=== PATIENT | female | born 1990 | race Caucasian/White ===

== ENCOUNTER 2021-09-18 13:07 | Emergency (ER) | payer OTHER, SELFPAY ==
[2021-09-18 13:18] VITALS: BP 152/94; PULSE 130; RESP 27; TEMP 36.7; O2SAT 99
--- NOTE | 2021-09-18 13:36 | ED.FEMALEGU ---
HPI - Female Genitourinary General Chief complaint: Vaginal Bleeding <Maryan Shafer PA-C - Last Filed: 09/18/21 19:18> Stated complaint: vag bld/abd pain; 10 wk preg <Maryan Shafer PA-C - Last Filed: 09/18/21 19:18> Time Seen by Provider: 09/18/21 13:21 <Maryan Shafer PA-C - Last Filed: 09/18/21 19:18> Source: patient <Maryan Shafer PA-C - Last Filed: 09/18/21 19:18> Mode of arrival: EMS <Maryan Shafer PA-C - Last Filed: 09/18/21 19:18> Limitations: no limitations <Maryan Shafer PA-C - Last Filed: 09/18/21 19:18> History of Present Illness HPI Narrative: This is a 30-year-old A1 female who presents to the ED via EMS from shelter with complaints of vaginal bleeding. Patient reports she has not had her period in 2 months and took a home test 1 month ago, which was positive. She then states she began having lower abdominal cramping last night, and began spotting a few hours ago today. The cramping has improved today. She notes the bleeding is light and she has not gone through a pad since the bleeding started. Patient denies any fevers, chills, nausea, vomiting, diarrhea, urinary symptoms, chest pain, shortness of breath. Patient denies any vaginal discharge or concern for STI. Patient has a history of opioid dependence and is on daily methadone therapy. She has not received her daily dose in the past 2 days. <Maryan Shafer PA-C - Last Filed: 09/18/21 19:18> Related Data Allergies/Adverse reactions: Allergies Allergy/AdvReac Type Severity Reaction Status Date / Time aripiprazole Allergy Mild TARDIVE Verified 05/22/16 19:50 DYSKINESIA <Maryan Shafer PA-C - Last Filed: 09/18/21 19:18> Review of Systems Review of Systems: CONSTITUTIONAL: Denies fever, chills, or sweats. CARDIOVASCULAR: Denies chest pain. RESPIRATORY: Denies dyspnea. GASTROINTESTINAL: Reports lower abdominal cramping, improved. Denies nausea, vomiting, or diarrhea. GENITOURINARY: Reports vaginal spotting. Denies vaginal discharge, dysuria, or hematuria. MUSCULOSKELETAL: Denies back pain. NEUROLOGIC: Denies headache, numbness, or weakness. <Maryan Shafer PA-C - Last Filed: 09/18/21 19:18> All systems reviewed & are unremarkable except as noted in HPI and below <Maryan Shafer PA-C - Last Filed: 09/18/21 19:18> PMFSH Past Medical History Medical History: Medical History (Updated 09/18/21 @ 19:12 by Maryan Shafer PA-C) History of miscarriage Opioid dependence on agonist therapy <Maryan Shafer PA-C - Last Filed: 09/18/21 19:18> Surgical History Surgical History: Surgical History (Updated 09/18/21 @ 18:55 by Maryan Shafer PA-C) History of <Maryan Shafer PA-C - Last Filed: 09/18/21 19:18> Social History Social History: Social History (Updated 09/18/21 @ 18:55 by Maryan Shafer PA-C) Smoking packs per day: 1 Smoking cigarettes per day: 20.0 Smoking status: Current every day smoker Substance use type: opiates <Maryan Shafer PA-C - Last Filed: 09/18/21 19:18> Exam Narrative: APPEARANCE: Well appearing, no pain in distress, well-nourished. HEAD: Normocephalic atraumatic. EYES: EOMI, conjunctivae clear. NECK: Supple. No adenopathy, no masses. RESPIRATORY: Airway patent, respirations nonlabored. Clear to auscultation bilaterally, no rales, rhonchi, wheezing. CARDIOVASCULAR: Regular rate and rhythm without murmurs rubs or gallops. Peripheral pulses 2+ and equal bilaterally. ABDOMINAL: Soft, minimal tenderness to suprapubic region, nondistended, no hepatosplenomegaly. Normoactive BS. No CVA tenderness to percussion. MUSCULOSKELETAL: Moves all extremities. Strength/ROM intact, No edema NEURO: A&O X3. Cranial nerves II - XII grossly intact. Good gait. Good coordination SKIN:: Warm, dry. Normal Color PSYCHIATRIC: Normal affect/mood, normal interaction. 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
[2021-09-18 14:17] LABS: Add Urine Microscopic? YES; Appearance Urine Clear (Clear); Bilirubin Urine Negative (Negative); Blood Urine 3+ (Negative); Color Urine Straw (Yellow); Glucose Urine UA Negative (Negative); Ketones Urine Negative (Negative); Leukocyte Esterase Ur Negative LEU/UL (Negative); Mucus Urine Rare /lpf; Nitrate Urine Negative (Negative); Protein Urine Negative (Negative); RBC Urine 0-2 /hpf (0-2); Squamous Epithelial Cell Urine Rare /hpf (Few); Urobilinogen Urine Negative mg/dL (<2.0); WBC Urine 0-3 /hpf
[2021-09-18] MEDS: ONDANSETRON INJ 4 MG/2 ML VIAL IV PUSH (14:18)
[2021-09-18] MEDS: SODIUM CHLORIDE 0.9% IV 1,000 ML 999 ML IV CONT (14:18)
[2021-09-18 14:32] LABS: Basophils Percent Auto 0.2 % (0.2-1.2); Eosinophils Percent Auto 0.2 % (0-4.4); Hematocrit 36.3 % (37.0-47.0); Immature Granulocyte Absolute 0.04 K/mm3 (0.00-0.031); Immature Granulocyte Percent A 0.4 % (0-0.5); Lymphocytes Absolute Auto 1.91 K/mm3 (0.9-3.2); Mean Corpuscular HGB Conc 33.1 g/dl (32-36); Mean Corpuscular Hemoglobin 29.8 pg (26-34); Mean Corpuscular Volume 90.1 fl (80-100); Mean Platelet Volume 9.6 fl (7.4-10.4); Monocytes Absolute Auto 0.5 K/mm3 (0.1-0.6); Monocytes Percent Auto 4.9 % (2.6-8.5); Neutrophils Absolute Auto 7.6 K/mm3 (1.3-6.7); Neutrophils Percent Auto 75.3 % (45.5-73.1); Platelet Count Result 377 k/mm3 (150-375); Red Blood Count 4.03 M/mm3 (4.2-5.4); Red Cell Distribution Width 13.8 % (11.5-14.5); White Blood Count 10.1 K/mm3 (4.5-10.0)
[2021-09-18 14:33] LABS: Specific Grav Ur 1.003 (1.001-1.035)
[2021-09-18 14:46] LABS: Anion Gap 10 mmol/L (8-16); Blood Urea Nitrogen 9 mg/dL (7-17); Calcium 9.1 mg/dL (8.4-10.2); Carbon Dioxide 27 mmol/L (22-30); Chloride 103 mmol/L (98-107); Estimated Glomerular Filt Rate > 60; Glucose 118 mg/dL (65-110); Potassium 3.2 mmol/L (3.4-5.0); Sodium 140 mmol/L (137-145)
[2021-09-18 15:21] VITALS: BP 149/78; PULSE 103; RESP 16; O2SAT 100
[2021-09-18] MEDS: POTASSIUM CHLORIDE 20 MEQ TABLET 40 MEQ PO (15:21)
== END 2021-09-18 15:30 ==
PROVIDERS: Physician Assistant; Emergency Provider Emergency Medicine
DX: N93.9 Abnormal uterine and vaginal bleeding, unspecified (principal); F11.20 Opioid dependence, uncomplicated; F17.210 Nicotine dependence, cigarettes, uncomplicated
CPT/HCPCS: 36415; 80048; 81001; 81025; 85025; 96361; 96374; 99284; A9270; J2405; J7030